=== PATIENT | female | born 1950 | race Caucasian/White ===

== ENCOUNTER 2025-03-31 13:47 | Outpatient (RCR) | payer MEDICARE, SELFPAY | END 2025-04-01 11:43 | disposition home or self-care (01) | LOC: RPT 13:47 | PROVIDERS: ATTENDING PHYSICIAN Specialist; FAMILY PHYSICIAN Internal Medicine | DX: M16.11 Unilateral primary osteoarthritis, right hip (principal); M25.551 Pain in right hip; Z73.6 Limitation of activities due to disability; M62.81 Muscle weakness (generalized) | CPT/HCPCS: 97110; 97162; 97535 ==

== ENCOUNTER → 2025-08-08 08:54 | Outpatient (REF) | payer MEDICARE, SELFPAY | LOC: RCS 08:54 | PROVIDERS: ATTENDING PHYSICIAN Specialist; FAMILY PHYSICIAN Internal Medicine | DX: Z01.818 Encounter for other preprocedural examination (principal) | CPT/HCPCS: 93005 ==

== ENCOUNTER 2025-09-02 06:10 | Day surgery (SDC) | payer MEDICARE, SELFPAY ==
--- NOTE | 2025-08-30 15:58 | VNURNOTE ---
Addendum entered by Jammie Bob RN 08/31/25 14:02:
Rec'ed info that pt will stay overnight. Surgery scheduled for 09/02. Referral placed in [facility] for home PT/OT. Pt notified of updated plan - left message. Home PT supervisor [facility] Pasquale and Intake Sammie updated.
Original Note:
Chart reviewed. [facility] lia[facility] called pt to review same day joint protocol. No answer, left message.
Will need to know street address - listed as PO Box in chart
--- NOTE | 2025-08-31 11:18 | CM ---
Addendum entered by Kari Thomason RN 09/02/25 14:04:
CM confirmed that patient will have two weeks of home PT via [facility]
PLAN: [facility]
Addendum entered by Kari Thomason RN 08/31/25 14:35:
CM spoke with patient. Patient stated that she will not have a ride for outpatient PT appointments. Patient is requesting [facility] for PT/OT until she is cleared to drive. Patient questioned further that [facility] has charged her for her surgery and she is
requesting a refund. CM forwarded her concerns to Santa at [facility] to discuss with patient.
Patient plans to use [facility] for outpatient PT when she is cleared to drive.
CM updated [facility] .
PLAN: [facility] for two week until cleared for driving.
Original Note:
CM left message for patient for [facility].
[2025-08-31 14:06] VITALS: BMI 21.6
[2025-08-31 14:59] VITALS: BMI 21.6
[2025-09-01 08:39] LABS: Glycohemoglobin (HgbA1c) 5.2 % (4.0-5.9)
[2025-09-02] VITALS (9 sets, daily range): BP systolic 115–156; BP diastolic 69–95; PULSE 70; O2SAT 100
[2025-09-02] MEDS: CELEBREX 200 MG PO (11:31)
[2025-09-02] MEDS: TYLENOL 650 MG PO ×3 (11:31→20:43)
[2025-09-02] MEDS: NORMOSOL-R/PLASMALYTE-A 1000 IV ×2 (11:41→15:56)
--- NOTE | 2025-09-02 12:17 | W.PN.UPDATE ---
Addendum entered and electronically signed by Bernie Gregory PA-C 09/02/25 16:12:
Given thrombocytopenia, I did discuss DVT prevention with Dr. Dennis of [facility].
He has recommended Lovenox 40 mg. Will start tonight.
Consult is in. [facility] plans to see tomorrow.
Repeat platelet count 77,000 in PACU. Will repeat a CBC in AM.
Original Note:
Update Note
Progress Note Update
R hip OA s/p R EJ w/ Dr Hogue
DVT prophylaxis - ASA, b/l venous foot pumps
- Monitor bleeding w/ full dose ASA. Consider switch to 81 mg PO BID should bleeding be significant w/ ITP
HTN - + parameters - monitor BP
Exercise induced asthma - monitor O2
- IS
- Duoneb prn
GERD and Laurent's esophagus - add Pepcid HS
ITP and mild leukocytosis - repeat CBC in AM
- Of note, baseline platelet count 70-120
Acute alcoholic pancreatitis 01/2023; alcohol use decreased since then (1 drink 3 days a week reported)
Ovarian CA s/p hysterectomy
Insomnia
Mild hyponatremia
Mild hyperkalemia
Post-operative pain meds Rx by Cedrick from [facility]
[2025-09-02 15:26] LABS: Hematocrit 36.4 % (37.0-47.0); Hemoglobin 12.4 g/dL (12.0-16.0); Mean Corp Hgb Conc. 34.1 g/dL (33.0-37.0); Mean Corpuscular Volume 90.3 fL (81.0-99.0); Red Cell Dist. Width 12.5 % (11.5-14.5)
[2025-09-02] MEDS: ROXICODONE 5 MG PO ×3 (15:54→22:37)
[2025-09-02 15:59] LABS: Platelet Count 77 10^3/uL (130-400)
--- NOTE | 2025-09-02 16:32 | PTCARENOTE ---
Patient admitted from pacu post total right hip arthroplasty.The patient denies any pain.The incision is intact without drainage.Neurovascular assessment is within normal limits and ongoing.Vital signs are stable.The patient is in her bed with the
call andrade in reach.Physical therapy will be in to see the patient shortly.
[2025-09-02] MEDS: ANCEF 5 IV ×2 (18:38→22:18)
[2025-09-02] MEDS: LOVENOX 40 MG SC (18:39)
[2025-09-02] MEDS: COLACE 100 MG PO (20:43)
[2025-09-02] MEDS: SENOKOT 17.2 MG PO (20:44)
[2025-09-02] MEDS: BACTROBAN 2% OINTMENT 1 APPLIC NASAL (20:47)
[2025-09-02] MEDS: PEPCID 20 MG PO (22:18)
[2025-09-02] MEDS: DESYREL 50 MG PO (22:18)
[2025-09-02] MEDS: NEURONTIN 300 MG PO (22:18)
[2025-09-03] MEDS: TYLENOL 650 MG PO ×4 (00:23→11:59)
[2025-09-03 04:37] VITALS: BP 90/50
[2025-09-03 04:40] VITALS: BP 95/47
--- NOTE | 2025-09-03 04:45 | PTCARENOTE ---
PCT made RN aware of patient's decrease in blood pressure, manual BP obtained. Patient is AOx3, no complaints of pain at this time. Vital signs stable, asymptomatic. No acute distress observed. Care ongoing.
[2025-09-03 07:20] LABS: Hematocrit 31.9 % (37.0-47.0); Hemoglobin 10.5 g/dL (12.0-16.0); Mean Corp Hgb Conc. 32.9 g/dL (33.0-37.0); Mean Corpuscular Volume 94.9 fL (81.0-99.0); Platelet Count 64 10^3/uL (130-400); Red Cell Dist. Width 12.9 % (11.5-14.5)
[2025-09-03 07:50] VITALS: BP 98/59
--- NOTE | 2025-09-03 07:56 | W.PN.ORTHO ---
Today's Communication / Plan
-
74-year-old female POD #1 R EJ 09/02/[address] Hogue.
- WBAT RLE with use of walker for ambulatory assistance.
- PT/OT. THP's.
- DVT Prophlaxis: Lovenox 40mg (per Hematology recs) received last night. Discussed with Hematology (Dr. Verde). Due to financial constraints, we will proceed with Lovenox 40 mg SC qPM x 28 days. Will monitor CBC weekly as outpatient. Hold Lovenox
for platelet count less than 50K.
- Patient with a history of thrombocytopenia. Platelet count 77,000 in PACU. Repeat CBC this AM: Hgb 10.5, platelet count 64,000. Await Hematology consultation; appreciate recommendations. Stable for D/C from Hematology standpoint.
- Plan for D/C to home with VN services.
- Post-operative medications previously sent to the patient's pharmacy on file. HOLD previously prescribed Celebrex, ASA (or any NSAID) while on Lovenox; will send to [facility] pharmacy [id number]. HOLD Decadron due to previous
reaction to corticosteroids.
- Follow-up as outpatient in 2 weeks for staple removal and clinical examination. All questions were answered.
Assessment
.
Distal Motor Intact: Yes
Dressing:
Aquacel dressing with scant (nickel sized) bloody drainage about the middle aspect. Otherwise, CDI.
Assessment:
POD #1 R EJ 09/02/[address] Hogue
Plan
.
Surgery / Date: R EJ 09/02/[address] Hogue
DVT Prophylaxis: Lovenox
Activity:
Out of bed.
PT/OT.
WBAT w/walker. THP's.
Discharge Plan: Home w/ VN
Discharge Information:
Appreciate CM.
Subjective
.
.:
Patient resting comfortably. She reports that her pain is well-controlled with current pain medication regimen. She reports working with PT yesterday and did well. Denies any further complaints or concerns.
Vital Signs and Labs
.
Vital Signs and Labs:
Lab Results
09/03/25 06:30
Temp Pulse Resp BP Pulse Ox
98.0 F 71 18 95/47 95
09/03/25 04:40 09/03/25 04:40 09/03/25 04:40 09/03/25 04:40 09/03/25 04:40
Non-invasive Hgb result: 12.2
Physical Exam
-
Physical examination of the right hip reveals Aquacel dressing in place with nickel size bloody drainage about the middle aspect of the dressing. No erythema, warmth, or ecchymosis at present. Thigh is soft and compressible. Calf is soft and
nontender to palpation. She is able to plantarflex and dorsiflex her right ankle. NVI distally.
[2025-09-03] MEDS: BACTROBAN 2% OINTMENT 1 APPLIC NASAL (08:11)
[2025-09-03] MEDS: COLACE 100 MG PO (08:11)
[2025-09-03] MEDS: SENOKOT 17.2 MG PO (08:11)
[2025-09-03 09:14] VITALS: BP 101/59; PULSE 75
--- NOTE | 2025-09-03 10:45 | CON.ONC ---
Consultation
-
Date Consultation Requested: 09/02/25
Date Consultation Performed: 09/03/25
Impression
Impression
Chronic ITP with platelet count in the range of 60-90,000 and is at baseline
Postop right total hip
Plan
Plan
Initiate apixaban 2.5 mg twice daily for 35 days
Apixaban is 87% protein bound, as such anticoagulation effect increases with time and likely plateaus at 5-7 days postop
Monitor CBC weekly as outpatient
Hold apixaban for platelet count less than 50K
Renal function stable
Anticipate discharge
Patient History
History of Present Illness
This is a 74-year-old female status post right total hip replacement with a long history of stable thrombocytopenia believed to be secondary to chronic ITP. She has had no postoperative bleeding. She tolerated a dose of Lovenox last evening and is
prevention for deep venous thrombosis. We have been asked to comment on appropriate anticoagulation. She has no previous history of documented platelet count less than 50K since 2018 and denies spontaneous bruising or bleeding.
Past-Medical/Surgical History
History of ovarian carcinoma
Hypertension
ITP
EtOH use
Patient Medication
�Medication �Instructions �Recorded �Confirmed �Last Taken �Type
lisinopril 30 mg tablet 30 mg PO DAILY Blood pressure 01/06/23 09/02/25 09/02/25 08:00 History
multivitamin 1 tab PO DAILY Supplement 01/06/23 09/02/25 08/27/25 History
mupirocin 2 % topical ointment 1 applic topical BID 08/30/25 09/02/25 09/02/25 08:00 History
naproxen sodium 220 mg tablet 220 mg PO BID PRN pain 08/30/25 09/02/25 08/27/25 History
(Aleve)
trazodone 50 mg tablet 50 mg PO HS 08/30/25 09/02/25 09/01/25 21:30 History
famotidine 20 mg tablet 20 mg PO HS #30 tabs 09/02/25 Unknown Rx
gabapentin 300 mg capsule 300 mg PO HS neuropathic 09/02/25 Unknown Rx
pain/sleep #10 caps
oxycodone 5 mg tablet 5 - 10 mg (1 - 2 x 5 mg) PO Q6H 09/02/25 Unknown Rx
PRN moderate-severe pain #30 tabs
Active Medications
Generic Name Dose Route Start Last Admin
Trade Name Freq PRN Reason Stop Dose Admin
Acetaminophen 650 mg 09/02/25 16:00 09/03/25 08:11
Acetaminophen 325 Mg Tablet PO 09/30/25 15:59 650 mg
Q4HWA DENISE Administration
Al Hydrox/Mg Hydrox/Simethicone 30 ml 09/02/25 14:56
Mag/Al/Simethicone Suspension 30 Ml Cup PO 09/30/25 14:55
Q4HPRN PRN
INDIGESTION
Albuterol/Ipratropium 3 ml 09/02/25 14:56
Ipratropium 0.5/Albuterol 3 Mg (3 Ml Ampul) INH
R Q6HPRN PRN
shortness of breath
Protocol
Docusate Sodium 100 mg 09/02/25 20:00 09/03/25 08:11
Docusate Sodium 100 Mg Capsule PO 09/30/25 19:59 100 mg
BID DENISE Administration
Enoxaparin Sodium 40 mg 09/02/25 18:00 09/02/25 18:39
Enoxaparin Sodium 40 Mg/0.4 Ml Syringe SC 09/30/25 17:59 40 mg
QPM DENISE Administration
Famotidine 20 mg 09/02/25 22:00 09/02/25 22:18
Famotidine 20 Mg Tablet PO 09/30/25 21:59 20 mg
HS DENISE Administration
Fentanyl Citrate 25 mcg 09/02/25 12:19
Fentanyl (50 Mcg/Ml) 100 Mcg/2 Ml Ampul IV 09/03/25 12:19
[id number] PRN
shivers
Gabapentin 300 mg 09/02/25 22:00 09/02/25 22:18
Gabapentin 300 Mg Capsule PO 09/30/25 21:59 300 mg
HS DENISE Administration
Hydromorphone HCl 0.5 mg 09/02/25 12:19
Hydromorphone 0.5 Mg/0.5 Ml Syringe IV 09/03/25 12:19
PACU-Q5MPRN PRN
severe pain
Hydromorphone HCl 0.25 mg 09/02/25 12:19
Hydromorphone 0.25 Mg/0.5 Ml Syringe IV 09/03/25 12:19
PACU-Q5MPRN PRN
moderate pain
Hydromorphone HCl 0.5 mg 09/02/25 14:56
Hydromorphone 0.5 Mg/0.5 Ml Syringe IV 09/16/25 14:55
Q3HPRN PRN
SEVERE BREAKTHROUGH PAIN ONLY
Parenteral Electrolytes 1,000 mls @ 100 mls/hr 09/02/25 12:30
Normosol-R/Plasmalyte-A IV 09/03/25 12:19
PER PROTOCOL DENISE
Lisinopril 30 mg 09/03/25 08:00 09/03/25 08:10
Lisinopril 10 Mg Tablet PO 10/01/25 07:59 Not Given
DAILY DENISE
Magnesium Hydroxide 30 ml 09/02/25 14:56
Milk Of Magnesia 30 Ml Cup PO 09/30/25 14:55
DAILYPRN PRN
constipation
Mupirocin 0 applic 09/02/25 20:00 09/03/25 08:11
Mupirocin 2% (Ointment) 22 Gram Tube NASAL 09/03/25 20:01 1 applic
BID DENISE Administration
Ondansetron HCl 4 mg 09/02/25 12:19
Ondansetron 4 Mg/2 Ml Vial IV 09/03/25 12:19
PACU-ONCEPRN PRN
nausea/vomiting
Ondansetron HCl 4 mg 09/02/25 14:56
Ondansetron 4 Mg/2 Ml Vial IV 09/30/25 14:55
Q6HPRN PRN
NAUSEA
Oxycodone HCl 10 mg 09/02/25 14:56
Oxycodone 10 Mg Regular Release Tablet PO 09/16/25 14:55
Q4HPRN PRN
severe pain
Oxycodone HCl 5 mg 09/02/25 14:56 09/02/25 22:37
Oxycodone 5 Mg Regular Release Tablet PO 09/16/25 14:55 5 mg
Q4HPRN PRN Administration
moderate pain
Oxycodone HCl 2.5 mg 09/02/25 14:56
Oxycodone 5 Mg Regular Release Tablet PO 09/16/25 14:55
Q4HPRN PRN
mild pain
Prochlorperazine Edisylate 5 mg 09/02/25 12:19
Prochlorperazine 10 Mg/2 Ml Vial IV 09/03/25 12:19
PACU-ONCEPRN PRN
nausea/vomiting
Prochlorperazine Maleate 5 mg 09/02/25 14:56
Prochlorperazine 5 Mg Tablet PO 09/30/25 14:55
Q6HPRN PRN
nausea/vomiting
Sennosides 17.2 mg 09/02/25 20:00 09/03/25 08:11
Sennosides (Senokot) 8.6 Mg Tablet PO 09/30/25 19:59 17.2 mg
BID DENISE Administration
Sodium Chloride 0 flush 09/02/25 06:00
Sodium Chloride 0.9% (Flush) Syringe IV 09/30/25 05:59
PER PROTOCOL DENISE
Tamsulosin HCl 0.4 mg 09/02/25 14:56
Tamsulosin 0.4 Mg Capsule PO 09/30/25 14:55
DAILYPRN PRN
bladder scan volume > 400 mL
Trazodone HCl 50 mg 09/02/25 22:00 09/02/25 22:18
Trazodone 50 Mg Tablet PO 09/30/25 21:59 50 mg
HS DENISE Administration
Review of Systems
-
12 point review of systems fails of the listed additional complaints other than those reviewed in HPI
Physical Exam
-
General: Well Developed, Well Nourished and No Apparent Distress
HEENT: Moist Mucous Membranes
Cardiology: Normal Sinus Rhythm
Pulmonary: Clear
GI: Soft
Musculoskeletal: Edema, Right Lower Extrem (Trace and appropriate postop hip)
Extremities: Pulses Present
Neurology: Non Focal
Skin: Warm and Dry
Psych: Calm
Labs
Lab Results
WBC 7.0 10^3/uL (4.8-10.8) 09/03/25 06:30
RBC 3.36 10^6/uL (4.20-5.40) L 09/03/25 06:30
Hgb 10.5 g/dL (12.0-16.0) L 09/03/25 06:30
Hct 31.9 % (37.0-47.0) L 09/03/25 06:30
MCV 94.9 fL (81.0-99.0) 09/03/25 06:30
MCH 31.3 pg (27.0-31.0) H 09/03/25 06:30
MCHC 32.9 g/dL (33.0-37.0) L 09/03/25 06:30
RDW 12.9 % (11.5-14.5) 09/03/25 06:30
Plt Count 64 10^3/uL (130-400) L 09/03/25 06:30
MPV 13.8 fL (7.4-10.4) H 09/03/25 06:30
Vital Signs
Vital Signs
Temp Pulse Resp BP Pulse Ox
98 F 75 16 98/59 97
09/03/25 07:50 09/03/25 07:50 09/03/25 07:50 09/03/25 07:50 09/03/25 07:50
[2025-09-03 11:28] VITALS: BP 101/59; PULSE 72; O2SAT 98
[2025-09-03 11:55] VITALS: BP 96/56
--- NOTE | 2025-09-03 12:19 | W.DS.TRANS ---
DC Summary - Senior Quality Analyst
-
Discharge Instructions:
#[id number]
Sleep Apnea Risk Intermediate
Discharge Diagnosis/Procedures R hip OA s/p R EJ w/ Dr Hogue 09/02/25
Diet Regular
Additional Diets Adequate hydration, minimize opioids, and wear
TEDs stockings to prevent low blood pressure/
dizziness.
Activity As tolerated,With Walker
Driving Restrictions Not until seen by your Dr
Bathing Restrictions OK to Shower
Other Services PT
Wound Care Dressing to be removed 1 week post-surgery.
Kinder to be removed at 2 week follow-up with
surgeon's office.
Instructions:
Stand-Alone Forms: Total Hip/Knee Replacement D/C
Changes to Home Medications: No
Discharge Medications:
DC Medications w/original date entered in [employer]
multivitamin 1 tab PO DAILY Supplement 01/06/23
mupirocin 2 % topical ointment 1 applic topical BID 08/30/25
trazodone 50 mg tablet 50 mg PO HS 08/30/25
acetaminophen 325 mg tablet 650 mg (2 x 325 mg) PO Q4HWA #60 tabs 09/02/25
docusate sodium 100 mg capsule 100 mg PO BID #30 caps 09/02/25
famotidine 20 mg tablet 20 mg PO HS #30 tabs 09/02/25
gabapentin 300 mg capsule 300 mg PO HS neuropathic pain/sleep #10 caps 09/02/25
lisinopril 30 mg tablet 30 mg PO DAILY Blood pressure #30 tabs 09/02/25
magnesium hydroxide 400 mg/5 mL oral suspension (Milk of Magnesia) 30 ml PO HS PRN constipation #3,780 mL 09/02/25
ondansetron HCl 4 mg tablet 4 mg PO Q6H PRN nausea and vomiting #30 tabs 09/02/25
oxycodone 5 mg tablet 5 - 10 mg (1 - 2 x 5 mg) PO Q6H PRN moderate-severe pain #30 tabs 09/02/25
sennosides 8.6 mg tablet (Mariam-adrian) 17.2 mg (2 x 8.6 mg) PO BID #30 tabs 09/02/25
enoxaparin 40 mg/0.4 mL subcutaneous syringe (Lovenox) 40 mg (0.4 mL) SC DAILY DVT Prophylaxis 28 days #11.2 mL 09/03/25
Home Medication Changes
Pending Results: No
Total time spent discharging patient (in min): 60 Minutes
--- NOTE | 2025-09-03 12:51 | CM ---
I.A: Patient lives with significant other who she cares for (who has Alzheimer) with [employer] assistance in a 3 Story House, uses a rolling walker, cane, no current Home PT/VN, and was at [facility] years ago.
PCP: Dr. Angelina Snider
Pharmacy: [facility]
Patient will have transportation home. PLAN: Home PT vs. No Needs.
--- NOTE | 2025-09-03 12:55 | CM ---
F/U: ISHA Jackson found out patient is discharging. Saw consult from Sep 02, 2025 for Home VN, confirmed with patient this is what she wants, and found out that [facility] was notified already with [facility] putting in the referral vs. CM. PLAN: Home PT with
[facility].
== END 2025-09-03 13:00 | disposition home health service (06) ==
LOC: SDS 06:10
PROVIDERS: Physician Assistant; ATTENDING PHYSICIAN Specialist; CONSULT PHYSICIAN Internal Medicine Hematology & Oncology; FAMILY PHYSICIAN Internal Medicine
DX: M16.11 Unilateral primary osteoarthritis, right hip (principal)
CPT/HCPCS: 27130; 36415; 73502; 83036; 85027; 87070; 97110; 97116; 97162; 97166; 97530; 97535; C1713; C1776